=== PATIENT | female | born 1975 | race Caucasian/White ===

== ENCOUNTER 2016-09-27 10:08 | Emergency (ER) | payer MEDICAID ==
[~2016-09-27] VITALS: Ht 149.9 cm; Wt 49.5 kg
[2016-09-27] MEDS ORDERED: MECL-76 PO (10:30)
[2016-09-27] MEDS ORDERED: LITH600C PO (10:32)
[2016-09-27] MEDS ORDERED: ASEN5TAB7 PO (10:32)
[2016-09-27] MEDS ORDERED: ASPIRIN 81 MG TABLET CHEW PO ONE (11:00)
[2016-09-27] MEDS ORDERED: ASPIRIN 325 MG TABLET ONE (11:11)
[2016-09-27] MEDS ORDERED: NITROGLYCERIN OINT 2%, 1GM TP ONE (11:11)
[2016-09-27] MEDS ORDERED: LORazepam 1MG TABLET PO ONE (11:30)
[2016-09-27] MEDS ORDERED: LORazepam 1MG TABLET ONE (11:33)
[2016-09-27 11:55] LABS: BLOOD UREA NITROGEN 9 mg/dL (7-18)
[2016-09-27 12:05] LABS: IS PT STATUS REG ER OR PRE ER? YES
[2016-09-27 13:10] VITALS: BP 109/70
== END 2016-09-27 13:25 | disposition home or self-care (01) ==
LOC: ED 13:19
DX: R07.89 Other chest pain (principal)
CPT/HCPCS: 36415; 71010; 80048; 80178; 82040; 83880; 84484; 85025; 93005; 99285

== ENCOUNTER 2016-10-12 10:52 | Observation (INO) | payer MEDICAID ==
[~2016-10-12] VITALS: Ht 170.2 cm; Wt 60.0 kg
[~2016-10-12 10:52] MED LIST: ASEN5TAB7 PO; LITH600C PO; MECL-76 PO
[2016-10-12 11:35] LABS: ASPARTATE AMINO TRANSFERASE 35 U/L (15-37); BLOOD UREA NITROGEN 12 mg/dL (7-18)
[2016-10-12 11:41] LABS: ACETAMINOPHEN < 2 mcg/mL (10-30)
[2016-10-12 11:57] LABS: DAU SCREEN DISCLAIMER
[2016-10-12] MEDS ORDERED: QUETIAPINE 25MG TABLET PO PRN (14:00)
[2016-10-12] MEDS ORDERED: HYDROcodone/APAP 5/325 TABLET PO PRN (14:00)
[2016-10-12] MEDS ORDERED: TRAZODONE 50MG TABLET PO PRN (14:00)
[2016-10-12] MEDS ORDERED: ONDANSETRON ODT 4 MG PO PRN (14:00)
[2016-10-12] MEDS ORDERED: ACETAMINOPHEN 325 MG TABLET PO PRN (14:00)
[2016-10-12] MEDS ORDERED: DOCUSATE 100 MG CAPSULE PO PRN (14:00)
[2016-10-12] MEDS ORDERED: CLON0.5T PO (14:27)
[2016-10-12 14:28] VITALS: BP 110/50
[2016-10-12 20:02] VITALS: BP 112/78
[2016-10-12] MEDS ORDERED: LITHIUM CARBONATE 300 MG CAPSULE PO SCH (21:00)
[2016-10-12] MEDS ORDERED: ASENAPINE MALEATE 5 MG HOMEMEDPO SCH (21:00)
== END 2016-10-13 04:00 ==
LOC: ED 11:30 → EDIP 11:52 → 3E 14:20
PROVIDERS: ADMIT Hospitalist; ATTEND Hospitalist
DX: R45.851 Suicidal ideations (principal); F31.9 Bipolar disorder, unspecified; F41.9 Anxiety disorder, unspecified; F43.10 Post-traumatic stress disorder, unspecified; Z91.14 Patient's other noncompliance with medication regimen; Z91.5 Personal history of self-harm; Z98.51 Tubal ligation status; Z83.3 Family history of diabetes mellitus
CPT/HCPCS: 36415; 80053; 80307; 80329; 84439; 84443; 84703; 85025; 99285; G0378; G0480